=== PATIENT | male | born 1965 | race American Indian/Alaskan Native ===

== ENCOUNTER 2022-04-12 14:59 | Emergency (ER) | payer OTHER ==
[2022-04-12] MEDS ORDERED: LIDOCAINE (1%) 10 MG/1 ML VIAL 20 ML MDV INFILTRATI ONE (15:28)
[2022-04-12] MEDS ORDERED: ONDANSETRON 4 MG/2 ML INJ IV ONE (15:28)
[2022-04-12] MEDS ORDERED: TETANUS,DIPH,PERTUSS(ACELL) VACCINE 0.5 ML SYRINGE IM ONE (15:28)
[2022-04-12] MEDS ORDERED: SODIUM CHLORIDE 0.9% IRR 500 ML BOTTLE IR ONE (15:28)
[2022-04-12] MEDS ORDERED: ceFAZolin/NS 1 GM/50 ML 1 GM/50 ML BAG IV ONE (15:28)
[2022-04-12] MEDS ORDERED: MORPHINE 4 MG/1 ML INJ IV ONE (15:28)
--- NOTE | 2022-04-12 15:29 | Emergency Department Report ---
Upper Extremity - HPI Chief Complaint: Extremity Injury, Upper Stated Complaint: CUT FINGER Time Seen by Provider: 04/12/22 15:27 Upper Extremity: Left Index Finger Occurred When: Today Mechanism: Other (Cut with industrial saw) Severity: severe Symptoms: Yes Pain with Movement, Yes Deformity, Yes Limited Range of Movement, Yes Swelling, Yes Bruising/Ecchymosis, Yes Laceration or Abrasion Other History: This patient is a 56-year-old gentleman, who is right-hand dominant, with a past medical history of hypertension, multiple myeloma, and chronic pain, who has an outpatient pain specialist who prescribes maintenance narcotic therapy, presenting to the ER department today with a complaint of accidental sawblade injury to his left index finger. He denies additional injuries and complaints. ED Review of Systems ROS: Stated complaint: CUT FINGER Other details as noted in HPI Comment: All other systems reviewed and negative Musculoskeletal: joint swelling, arthralgia, myalgia Skin: other (Left index finger laceration) ED Past Medical Hx - Past Medical History Additional medical history: Multiple myoloma - remission - Surgical History Additional Surgical History: Leg sx - titanium plate - Social History Smoking Status: Never Smoker - Medications Home Medications: Home Medications Medication Instructions Recorded Confirmed Last Taken Type Sulfamethoxazole/Trimethoprim 1 each PO BID #14 tab 04/12/22 Unknown Rx [Bactrim DS TAB] cephALEXin [Keflex] 500 mg PO Q6HR #28 capsule 04/12/22 Unknown Rx Upper Extremity Exam - Exam General: Vital signs noted. No distress. Alert and acting appropriately. No facial droop. Tongue midline. Extraocular movements intact bilaterally. Facial sensation intact to light touch in V1, V2, V3 distribution bilaterally. 5 and a 5 strength in 4 extremities. Sensation intact to light touch in 4 extremities. There is a macerated and lacerated left index finger, with a curvilinear laceration starting from the mid medial left index finger, curvilinear extending to the dorsal aspect, involving the medial aspect of the nail, and the pad of the finger. No foreign bodies are noted. Patient has partial function of flexor digitorum superficialis in this digit. Flexor digitorum profundus is intact. Able to extend the finger at the MCP joint, and PIP joint. DIP flexion and extension limited secondary to laceration, and dislocation/fracture Head and Torso: No HEENT Abnormality, No Neck Tenderness, No Chest/Lungs Abnormality, No Abdominal Tenderness, No Back Tenderness Shoulder Exam: Yes Normal Range of Motion in Shoulder, No Shoulder Tenderness, No Clavicle Tenderness, No Shoulder Deformity, No AC Joint Tenderness Arm Exam: No Arm/Humerus Tenderness, No Arm Deformity Elbow: Yes Normal Range of Motion in Elbow, No Elbow Tenderness, No Elbow Deformity Forearm: No Forearm Tenderness, No Forearm Deformity, No Pain with Pronation, No Pain with Supination Wrist: Yes Normal ROM in Wrist, No Wrist Tenderness, No Wrist Deformity, No Snuffbox Tenderness, No Pain with Axial Thumb Compression Hand: Yes Digit Tenderness, Yes Digit(s) Deformity, Yes Tendon Dysfunction, No Hand Tenderness, No Hand Deformity, No Normal ROM in Digit(s) CMS Exam: Yes Broken Skin, Yes Normal Distal Pulses, Yes Normal Capillary Refill, Yes Normal Distal Sensation ED Course Vital Signs 04/12/22 15:06 Temperature 99.4 F Pulse Rate 94 H Respiratory 16 Rate Blood Pressure 151/95 O2 Sat by Pulse 98 Oximetry - Laceration /Wound Repair Left Medial Dorsal Finger Wound Location: upper extremity Wound Length (cm): 10 Wound's Depth, Shape: irregular, contused tissue Wound Explored: contaminated Irrigated w/ Saline (ccs): 500 Anesthesia: 1% Lidocaine Wound Debrided: moderate Wound Repaired With: sutures Suture Size/Type: 5:0 (Interrupted, monofilament, nonabsorbable, 15), 3:0 (Interrupted, monofilament, nonabsorbable, 5) Layer Closure?: No Sterile Dressing Applied?: Yes - Nerve Block Consent Obtained: verbal consent Time Out Performed: Yes Local Anesthetic Used: Lidocaine 1% Amount of anesthesia used: 6 Side: left Nerve Blocks: other (Left ring finger Ring block, and left ring finger fickle block) Procedure Successful: Yes Complications: none Patient Tolerated Procedure: well - Orthopedic Fracture Reduction Fracture #1 Consent Obtained: verbal consent Time Out Performed: Yes Side: left Fracture Reduction Location: metacarpal, finger Analgesia: digital block Technique: direct manipulation Post Reduction X-rays Demonstrate: acceptable reduction Post-Reduction Neuro Exam: intact Post-Reduction Vascular Exam: intact Splint Applied: Yes Patient Tolerated Procedure: well - Orthopedic Splinting/Casting Injury #1 Side: left Upper Extremity Immobilizer: figure of eight splint ED Medical Decision Making - Lab Data Vital Signs 04/12/22 15:06 Temperature 99.4 F Pulse Rate 94 H Respiratory 16 Rate Blood Pressure 151/95 O2 Sat by Pulse 98 Oximetry - Radiology Data Radiology results: pending, report reviewed, image reviewed XR hand 3+V LT INDICATION: deformity. COMPARISON: None available. FINDINGS: There is a comminuted fracture of the index finger distal phalanx with volar displacement of all the distal fracture fragments from the DIP joint. There are no radiopaque foreign bodies. Signer Name: Víctor Hernandez MD Signed: 04/12/2022 2:43 PM Workstation Name: [id number] - Medical Decision Making Differential diagnosis, including but not limited to: Laceration, fracture, dislocation, extensor tendon injury Assessment and plan: 56-year-old gentleman, who is right-hand dominant, presenting with a complex left index finger laceration, mostly involving the medial and dorsal aspect of the left index finger. There is an obvious dislocation and fracture, FDP/FDS appear to be grossly intact in the left index finger, extensors appear to be partially compromised. He was treated aggressively, with pain medication, and IV antibiotics. After appropriate anesthesia was established with a thecal block and ring block, left index finger was irrigated copiously with adequate sterile saline, at adequate pressure. I then contacted hand surgeon on-call for [facility], Dr. Kaye Discussed the patient's history, physical, imaging studies and clinical impression. He advises that this injury pattern does not require transfer at this time, and further advises that the patient should be suitable to follow-up with outpatient hand surgery clinic within the next week. The patient's laceration after adequate irrigation was loosely closed with multiple interrupted sutures. I then applied Xeroform gauze to the left index finger, Hayder wrap, Kerlix wrap, and also applied a finger splint. The hand is currently being elevated. I had extensive discussion with the patient regarding wound care instructions, and signs of infection. I have also counseled this patient that he will likely experience disability with this finger, and loss of functionality. I have strongly encouraged the patient to closely follow-up with outpatient hand surgery, and he is endorsed understanding and reliability to follow-up. Patient is already on multiple chronic narcotic medications prescribed by his pain specialist, I have advised the patient to continue his current outpatient chronic narcotic therapy, and if he feels like his therapy needs to be escalated for acute pain, that he should follow-up with his outpatient pain specialist for escalation of pain medication. All questions are answered. Return precautions reviewed. Patient and significant other articulated understanding Critical care attestation.: If time is entered above; I have spent that time in minutes in the direct care of this critically ill patient, excluding procedure time. ED Disposition Clinical Impression: Fracture of distal phalanx of finger of left hand Laceration of left index finger Qualifiers: Encounter type: initial encounter Damage to nail status: with damage Foreign body presence: without foreign body Qualified Code(s): S61.311A - Laceration without foreign body of left index finger with damage to nail, initial encounter Disposition: HOME / SELF CARE / HOMELESS Is pt being admited?: No Does the pt Need Aspirin: No Condition: Good Instructions: Laceration Care, Adult, Metacarpal Fracture Additional Instructions: Recommend follow-up as soon as possible with an outpatient hand surgeon. We have discussed your case with covering hand surgeon, Dr. Kaye, who is affiliated with [facility] [place]. If patient elects, please call up [facility], and request follow-up with her outpatient hand surgeon within the next 5 to 7 days. May alternatively follow-up with [facility] within the next 5 to 7 days. Please continue current outpatient pain medication as prescribed by your pain specialist. Please take the antibiotics as directed. Please return right away with redness, pus, streaking, swelling, fevers or chills, or any new, worsened or different symptoms not present on the initial ER evaluation. Please note that secondary to the nature of the left finger laceration, the patient is very likely to experience disability, deformity, and scar tissue in the left upper extremity/finger. Therefore, it is very important that he closely follow-up with an outpatient hand surgeon as directed. [address] [address] [address] Floor Tuesday, Tuesday, , Tuesday: 8 AM - 5:30 PM (Main) (Appointments) [address] [address] Referrals: [facility] [Provider Group] - 3-5 Days Forms: Work/School Release Form(ED)
--- NOTE | 2022-04-12 15:47 | XRay Report ---
XR hand 3+V LT INDICATION: deformity. COMPARISON: None available. FINDINGS: There is a comminuted fracture of the index finger distal phalanx with volar displacement of all the distal fracture fragments from the DIP joint. There are no radiopaque foreign bodies. Signer Name: Víctor Hernandez MD Signed: 04/12/2022 3:43 PM Workstation Name: [id number]
[2022-04-12 18:00] VITALS: BP 157/110
== END 2022-04-12 18:01 | disposition home or self-care (01) ==
LOC: ED 14:59
DX: S62.631A Displaced fracture of distal phalanx of left index finger, initial encounter for closed fracture (principal); S61.211A Laceration without foreign body of left index finger without damage to nail, initial encounter; Z98.890 Other specified postprocedural states; W27.0XXA Contact with workbench tool, initial encounter; Y93.89 Activity, other specified; Y92.89 Other specified places as the place of occurrence of the external cause; Y99.8 Other external cause status
CPT/HCPCS: 26765; 73130; 90471; 90715; 96374; 96375; 99283; J0690; J2270; J2405